=== PATIENT | female | born 1950 | race Caucasian/White ===

== ENCOUNTER → 2016-07-05 | Outpatient (CLI) | payer MEDICARE, OTHER ==
[~2016-07-05] MED LIST: ATORVASTATIN; HORMONE REPLACEMENT; LEVOTHYROXINE PO; PREDNISONE20 MG PO; REGLAN 10MG10 MG/TAB PO
== END ==
LOC: MC.RAD 09:15
DX: Z12.31 Encounter for screening mammogram for malignant neoplasm of breast (principal)

== ENCOUNTER → 2018-08-18 | Outpatient (CLI) | payer MEDICARE, OTHER | LOC: MC.RAD 08:00 | DX: Z12.31 Encounter for screening mammogram for malignant neoplasm of breast (principal) ==

== ENCOUNTER → 2018-11-01 | Outpatient (CLI) | payer MEDICARE, OTHER | LOC: COL.RAD 14:25 | DX: D35.2 Benign neoplasm of pituitary gland (principal); H53.40 Unspecified visual field defects | CPT/HCPCS: A9585 ==

== ENCOUNTER 2018-11-16 12:45 | Outpatient (RCR) | payer MEDICARE, OTHER | END 2018-12-05 09:42 | disposition home or self-care (01) | LOC: WSOT 12:45 | DX: F32.9 Major depressive disorder, single episode, unspecified (principal); M19.041 Primary osteoarthritis, right hand; M19.042 Primary osteoarthritis, left hand; G47.19 Other hypersomnia; G47.33 Obstructive sleep apnea (adult) (pediatric) ==

== ENCOUNTER → 2019-11-30 | Outpatient (CLI) | payer MEDICARE, OTHER | LOC: MC.RAD 11:23 | DX: Z12.31 Encounter for screening mammogram for malignant neoplasm of breast (principal) ==